=== PATIENT | female | born 1965 | race Caucasian/White ===

== ENCOUNTER → 2017-08-26 | Outpatient (CLI) | payer OTHER ==
[~2017-08-26] MED LIST: CAND16; HYDACE5 PO; HYDMOR2 PO; LISHYD2012 PO; METO25ER PO; NAPR550 PO; ONDA8ODT MM; OXYACE5T PO; OXYACE7.5T PO; PROM25 PO; RXHYDMOR2 PO; RXNAPNA550 PO; RXOXYACE PO; RXPROM25 PO
== END ==
LOC: LAB 12:10
DX: R30.0 Dysuria (principal)
CPT/HCPCS: 87086

== ENCOUNTER → 2017-10-07 | Outpatient (CLI) | payer OTHER ==
[2017-10-07 16:49] LABS: Appearance, Urine Cloudy (Clear); Bilirubin, Urine Neg (Neg); Blood, Urine 1+ (Neg); Color, Urine Yellow (P-Yellow); Glucose Qualitative, Urine Neg (Neg); Ketones, Urine Neg (Neg); Leukocyte Esterase, Urine 2+ (Neg); Nitrite, Urine Pos (Neg); Protein, Urine 1+ (Neg); Urobilinogen, Urine NORM (Normal)
[2017-10-07 16:52] LABS: Triple Phosphate Crystals Mod /hpf
[2017-10-07 16:54] LABS: Bacteria Many /hpf; Squamous Epithelial Cells Rare /hpf (Few)
== END ==
LOC: LAB 14:20
PROVIDERS: Registered Nurse
DX: N39.0 Urinary tract infection, site not specified (principal)
CPT/HCPCS: 81001; 87086

== ENCOUNTER 2017-11-01 16:06 | Emergency (ER) | payer OTHER ==
[~2017-11-01] VITALS: Ht 162.6 cm; Wt 72.6 kg
[2017-11-01 17:00] LABS: BASOPHILS ABSOLUTE AUTO 0.04 K/mm3 (0.00-0.23); BASOPHILS PERCENT AUTO 0 % (0-2); EOSINOPHILS PERCENT AUTO 0 % (0-6); Hematocrit 43.2 % (33.0-51.0); Hemoglobin 15.1 g/dL (11.5-16.0); IMMATURE GRAN ABSOLUTE AUTO 0.04 K/mm3 (0.00-0.10); IMMATURE GRAN PERCENT AUTO 0 % (0-1); LYMPHOCYTES ABSOLUTE AUTO 0.72 K/mm3 (0.84-5.20); LYMPHOCYTES PERCENT AUTO 5 % (21-46); MONOCYTES ABSOLUTE AUTO 1.15 K/mm3 (0.16-1.47); MONOCYTES PERCENT AUTO 9 % (4-13); Mean Corpuscular HGB 31.9 pg (26.0-34.0); Mean Corpuscular Volume 91 fL (80-100); Mean Platelet Volume 10.6 fL (9.1-12.4); NEUTROPHILS ABSOLUTE AUTO 11.49 K/mm3 (1.96-9.15); NEUTROPHILS PERCENT AUTO 85 % (41-73); Platelet Count 171 K/mm3 (150-400); RDW Coefficient Variation 12.6 % (11.7-14.2); Red Blood Cell Count 4.74 M/mm3 (3.80-5.20); White Blood Cell Count 13.44 K/mm3 (4.00-11.30)
[2017-11-01 17:18] LABS: Source, Urine Voided
[2017-11-01 17:28] LABS: Alanine Aminotransfer (ALT/SGP 30 U/L (12-78); Albumin, Blood 3.9 g/dL (3.4-5.0); Albumin/Globulin Ratio 0.8 (0.8-1.8); Alk Phos 132 U/L (50-136); Anion Gap 11 mmol/L (6-16); Aspartate Aminotrans (AST/SGOT 22 U/L (12-37); Bilirubin, Total 1.3 mg/dL (0.1-1.0); Blood Urea Nitrogen 17 mg/dL (8-24); Bun/Creatinine Ratio 21.1 (12.0-20.0); CO2, Blood 25 mmol/L (21-32); Calcium, Blood 9.5 mg/dL (8.5-10.1); Chloride, Blood 98 mmol/L (98-108); Globulin, Blood 4.6 g/dL (2.2-4.0); Glomerular Filtration Rate >60 (60-); Glucose, Blood 133 mg/dL (70-99); Sodium, Blood 134 mmol/L (136-145); Total Protein, Blood 8.5 g/dL (6.4-8.2)
[2017-11-01 17:35] LABS: Bilirubin, Urine Neg (Neg); Blood, Urine 2+ (Neg); Glucose Qualitative, Urine Neg (Neg); Ketones, Urine 2+ (Neg); Leukocyte Esterase, Urine 3+ (Neg); Nitrite, Urine Pos (Neg); Protein, Urine 2+ (Neg); Specific Gravity, Urine 1.015 (1.003-1.022); Urobilinogen, Urine NORM (Normal)
[2017-11-01 17:58] LABS: Appearance, Urine Hazy (Clear); Color, Urine Yellow (P-Yellow)
[2017-11-01 17:59] LABS: Bacteria Many /hpf; Squamous Epithelial Cells Few /hpf (Few); White Blood Cells, Urine 25-50 /hpf (0-5)
== END 2017-11-01 19:18 | disposition short-term general hospital (02) ==
LOC: ER 16:06
PROVIDERS: Physician Assistant
DX: N13.2 Hydronephrosis with renal and ureteral calculous obstruction (principal); I10 Essential (primary) hypertension; F17.210 Nicotine dependence, cigarettes, uncomplicated; Z88.2 Allergy status to sulfonamides
CPT/HCPCS: 36415; 76770; 80053; 81001; 83605; 85025; 87040; 87086; 96365; 96375; 99285; J0692; J1885; J2405; J3010; J7030

== ENCOUNTER 2017-12-08 15:12 | Emergency (ER) | payer OTHER ==
[~2017-12-08] VITALS: Ht 162.6 cm; Wt 74.8 kg
[2017-12-08 15:56] LABS: Hematocrit 38.2 % (33.0-51.0); Hemoglobin 13.2 g/dL (11.5-16.0); Mean Corpuscular HGB 31.3 pg (26.0-34.0); Mean Corpuscular HGB Conc 34.6 g/dL (31.5-36.5); Mean Corpuscular Volume 91 fL (80-100); Mean Platelet Volume 10.8 fL (9.1-12.4); Platelet Count 239 K/mm3 (150-400); RDW Coefficient Variation 12.2 % (11.7-14.2); RDW Standard Deviation 40.7 fL (35.1-46.3); Red Blood Cell Count 4.22 M/mm3 (3.80-5.20)
[2017-12-08 16:22] LABS: Albumin, Blood 3.5 g/dL (3.4-5.0); Albumin/Globulin Ratio 0.9 (0.8-1.8); Bilirubin, Total 1.1 mg/dL (0.1-1.0); Bun/Creatinine Ratio 25.9 (12.0-20.0); Creatinine, Blood 1.08 mg/dL (0.40-1.00); Globulin, Blood 3.8 g/dL (2.2-4.0); Potassium, Blood 2.8 mmol/L (3.5-5.5); Total Protein, Blood 7.3 g/dL (6.4-8.2)
[2017-12-08 16:32] LABS: BAND PERCENT MAN 5 % (0-8); BASOPHILS ABSOLUTE MAN 0.24 K/mm3 (0.00-0.23); BASOPHILS PERCENT MAN 1 % (0-2); EOSINOPHILS PERCENT MAN 0 % (0-6); LYMPHOCYTES ABSOLUTE MAN 0.96 K/mm3 (0.84-5.20); LYMPHOCYTES PERCENT MAN 4 % (21-46); MONOCYTES ABSOLUTE MAN 0.48 K/mm3 (0.16-1.47); MONOCYTES PERCENT MAN 2 % (4-13); NEUTROPHILS ABSOLUTE MAN 22.32 K/mm3 (1.96-9.15); SEG NEUTROPHILS PERCENT MAN 88 % (41-73); TOTAL CELLS COUNTED 100
== END 2017-12-08 18:28 | disposition short-term general hospital (02) ==
LOC: ER 15:12
PROVIDERS: Emergency Medicine
DX: S37.012A Minor contusion of left kidney, initial encounter (principal); E87.6 Hypokalemia; I10 Essential (primary) hypertension; E78.5 Hyperlipidemia, unspecified; K21.9 Gastro-esophageal reflux disease without esophagitis; Z87.442 Personal history of urinary calculi; X58.XXXA Exposure to other specified factors, initial encounter
CPT/HCPCS: 36415; 74176; 80053; 85025; 96361; 96365; 96375; 96376; 99285; J1885; J2001; J2405; J3010; J3480; J7030

== ENCOUNTER → 2019-01-12 | Outpatient (CLI) | payer SELFPAY ==
[2019-01-12 12:56] LABS: Source, Urine Clean Catch
[2019-01-12 16:53] LABS: Appearance, Urine Turbid (Clear); Bilirubin, Urine Neg (Neg); Blood, Urine 2+ (Neg); Color, Urine Yellow (P-Yellow); Glucose Qualitative, Urine Neg (Neg); Ketones, Urine 1+ (Neg); Leukocyte Esterase, Urine 3+ (Neg); Nitrite, Urine Neg (Neg); Protein, Urine 3+ (Neg); Urobilinogen, Urine NORM (Normal)
[2019-01-12 17:53] LABS: Bacteria Many /hpf; Squamous Epithelial Cells Rare /hpf (Few)
== END | disposition home or self-care (01) ==
LOC: LAB 12:00 → LAB SHORT 12:00
PROVIDERS: Nurse Practitioner Family
DX: Z09 Encounter for follow-up examination after completed treatment for conditions other than malignant neoplasm (principal); Z87.440 Personal history of urinary (tract) infections
CPT/HCPCS: 81001; 87077; 87086; 87186

== ENCOUNTER → 2020-05-24 | Outpatient (CLI) | payer SELFPAY | END | disposition home or self-care (01) | LOC: LAB 11:06 → LAB SHORT 11:06 | DX: N30.01 Acute cystitis with hematuria (principal); R30.0 Dysuria | CPT/HCPCS: 87086 ==

== ENCOUNTER 2024-10-05 07:37 | Inpatient (IN) | payer SELFPAY ==
[~2024-10-05] VITALS: Ht 162.6 cm; Wt 72.9 kg
[2024-10-05 08:16] LABS: BASOPHILS ABSOLUTE AUTO 0.06 K/mm3 (0.00-0.23); BASOPHILS PERCENT AUTO 1 % (0-2); EOSINOPHILS ABSOLUTE AUTO 0.18 K/mm3 (0.00-0.68); EOSINOPHILS PERCENT AUTO 1 % (0-6); Hematocrit 44.4 % (33.0-51.0); IMMATURE GRAN ABSOLUTE AUTO 0.06 K/mm3 (0.00-0.10); IMMATURE GRAN PERCENT AUTO 1 % (0-1); LYMPHOCYTES PERCENT AUTO 8 % (21-46); MONOCYTES ABSOLUTE AUTO 0.47 K/mm3 (0.16-1.47); MONOCYTES PERCENT AUTO 4 % (4-13); Mean Corpuscular HGB 33.6 pg (26.0-34.0); Mean Corpuscular Volume 93 fL (80-100); Mean Platelet Volume 11.5 fL (9.1-12.4); NEUTROPHILS ABSOLUTE AUTO 11.14 K/mm3 (1.96-9.15); NEUTROPHILS PERCENT AUTO 86 % (41-73); Platelet Count 183 K/mm3 (150-400); RDW Coefficient Variation 12.8 % (11.7-14.2); Red Blood Cell Count 4.76 M/mm3 (3.80-5.20); White Blood Cell Count 12.91 K/mm3 (4.00-11.30)
[2024-10-05 08:34] LABS: Albumin, Blood 3.7 g/dL (3.4-5.0); Albumin/Globulin Ratio 0.8 (0.8-1.8); Bilirubin, Total 0.9 mg/dL (0.1-1.0); Bun/Creatinine Ratio 19.3 (12.0-20.0); Calcium, Blood 8.5 mg/dL (8.5-10.1); Creatinine, Blood 1.14 mg/dL (0.40-1.00); Globulin, Blood 4.8 g/dL (2.2-4.0); Magnesium, Blood 1.7 mg/dL (1.6-2.4); Total Protein, Blood 8.5 g/dL (6.4-8.2)
[2024-10-05] MEDS ORDERED: HydrALAZINE HCl 20 MG / ML 1ML Vial IV ONE (08:40)
[2024-10-05 09:00] LABS: CORONAVIRUS COVID-19 AG Negative (NEGATIVE); INFLUENZA A AG Negative (NEGATIVE); INFLUENZA B AG Negative (NEGATIVE)
[2024-10-05] MEDS ORDERED: Aspirin 325 MG Tab PO ONE (09:25)
[2024-10-05] MEDS ORDERED: Furosemide 10 MG / ML 2ML Vial IV ONE (09:35)
[2024-10-05] MEDS ORDERED: Magnesium Sulf 2 GM/Water 50ML 50 ML IV ONE (10:00)
[2024-10-05] MEDS ORDERED: Potassium Chloride 40 MEQ in NS 250 ML IV ONE (10:00)
[2024-10-05] MEDS ORDERED: HydrALAZINE HCl 20 MG / ML 1ML Vial IV PRN ×2 (10:55→14:55)
[2024-10-05] MEDS ORDERED: NIFEdipine 30 MG TabCR PO SCH (11:00)
[2024-10-05] MEDS ORDERED: FLU VACC TS2024-25(6MOS UP)/PF 45 MCG/0.5 ML SYRINGE IM SCH (11:00)
[2024-10-05] MEDS ORDERED: Polyethylene Glycol 3350 17 gm PO PRN (11:00)
[2024-10-05] MEDS ORDERED: Lisinopril 10 MG Tab PO SCH (11:00)
[2024-10-05] MEDS ORDERED: Acetaminophen 500 MG Tab PO PRN (11:00)
[2024-10-05 15:59] VITALS: BP 166/92
[2024-10-05] MEDS ORDERED: Thiamine HCl 100 MG Tab PO SCH (17:15)
--- NOTE | 2024-10-05 17:15 | NUR ---
ADMIT NOTE Received report form ED RN. Pt to room, up ind transfered to bed. Pt oriented to room and call light. Educated on fall risk. Pt reports increased sob today, felt off this morning before walking to work and sob got progressivly worse. Pt alert, oriented x4; calm and cooperative with care. Pt does report "drinking too much", when asked for additional information, pt states she drinks 3-4 shots of whiskey on day that she works and more on her off days, pt denies having withdrawal s/sx previously, notified, new order for CIWA monitoring and thiamine po. Pt sob with exertion, spo2 >90% on ra, tachypnic at times, ls clear. Tele sinus 80-90's, bp elevated 160 SBP. Abd soft, nontender, +bt. Noted red/dark rash to lower abd, states it has been there for awhile, MD notified. No edema noted. Pt report a history of urinary retention. Potassium recheck at 1540 drawn prior to completion of potassium replacement, notified, new orders to recheck later this evening. Crit trop 293, notified Dr Reveles, new orders for redraw later this evening. Will continue to monitor.
[2024-10-05 17:44] VITALS: BP 159/83
[2024-10-05 20:00] VITALS: BP 169/102
[2024-10-05 22:00] VITALS: BP 158/98
[2024-10-05] MEDS ORDERED: Potassium Chloride 10 Meq Tablet SA PO ONE (23:45)
[2024-10-05] MEDS ORDERED: Potassium Chl 20MEQ/Water100ML 100 ML IV SCH (23:45)
[2024-10-06] VITALS: BP 164/104
[2024-10-06] MEDS ORDERED: NS 250 ML IV PRN (00:40)
[2024-10-06] MEDS ORDERED: Potassium Chloride 40 MEQ in NS 250 ML IV ONE (00:45)
[2024-10-06 02:00] VITALS: BP 154/97
[2024-10-06 04:00] VITALS: BP 147/94
[2024-10-06 04:58] LABS: Hematocrit 39.4 % (33.0-51.0); Hemoglobin 14.2 g/dL (11.5-16.0); Mean Corpuscular HGB 33.8 pg (26.0-34.0); Mean Corpuscular Volume 94 fL (80-100); Platelet Count 181 K/mm3 (150-400); RDW Coefficient Variation 13.1 % (11.7-14.2); RDW Standard Deviation 44.7 fL (35.1-46.3); White Blood Cell Count 8.63 K/mm3 (4.00-11.30)
[2024-10-06 05:47] LABS: Albumin, Blood 3.1 g/dL (3.4-5.0); Anion Gap 9 mmol/L (3-11); Blood Urea Nitrogen 20 mg/dL (8-24); Bun/Creatinine Ratio 16.8 (12.0-20.0); CO2, Blood 27 mmol/L (21-32); Calcium, Blood 8.7 mg/dL (8.5-10.1); Chloride, Blood 105 mmol/L (98-108); Creatinine, Blood 1.19 mg/dL (0.40-1.00); Glomerular Filtration Rate 52 (60-); Glucose, Blood 136 mg/dL (70-99); Magnesium, Blood 2.2 mg/dL (1.6-2.4); Phosphorus, Blood 2.7 mg/dL (2.5-4.9); Potassium, Blood 3.7 mmol/L (3.5-5.5); Sodium, Blood 137 mmol/L (136-145)
[2024-10-06 07:13] LABS: Albumin, Blood 3.2 g/dL (3.4-5.0); Albumin/Globulin Ratio 0.8 (0.8-1.8); Bilirubin, Total 1.1 mg/dL (0.1-1.0); Bun/Creatinine Ratio 16.4 (12.0-20.0); Calcium, Blood 8.6 mg/dL (8.5-10.1); Creatinine, Blood 1.1 mg/dL (0.40-1.00); Globulin, Blood 3.9 g/dL (2.2-4.0); Potassium, Blood 3.4 mmol/L (3.5-5.5); Total Protein, Blood 7.1 g/dL (6.4-8.2)
[2024-10-06 07:25] VITALS: BP 156/95
[2024-10-06] MEDS ORDERED: Potassium Chloride 20 MEQ TabCR PO ONE (08:40)
[2024-10-06] MEDS ORDERED: Furosemide 20 MG Tab PO SCH (09:00)
[2024-10-06] MEDS ORDERED: Enoxaparin 40 MG/0.4 ML SYR SC SCH (09:00)
--- NOTE | 2024-10-06 11:01 | NUR ---
THIS RN TOOK OVER CARE FOR THE PT AT ABOUT 1015. THE PT IS A&OX4, MAKING HER NEEDS KNOW, CALM IN THE ROOM, AND WE ARE WAITING FOR DISCHARGE ORDERS FROM THE DR. VS STABLE. PT ON RA AND DENIES ANY SOB. ON TELE SHE IS SR 80'S W/ PROLONGED QTC .54. PROVIDER AWARE. SHE DENIES ANY ANGINA OR CHEST PRESSURE. VS STABLE. SEE NOTES FOR ANY UPDATES.
[2024-10-06 11:28] VITALS: BP 158/97
[2024-10-06] MEDS ORDERED: FURO20 PO (13:10)
[2024-10-06] MEDS ORDERED: Prinivil10 MG PO (13:11)
[2024-10-06] MEDS ORDERED: AMLO5 PO (13:11)
--- NOTE | 2024-10-06 14:10 | NUR ---
D/C SUMMARY THE PT IS A&OX4, MAKES HER NEEDS KNOWN, WAS IND IN THE ROOM, AND VS STABLE. THE PT WAS WITHOUT ANY ANGINA OR CHEST PRESSURE. THE PT'S MEDICATIONS WERE FAXED TO [facility] PER REQUEST AND ALLL BELONGINGS WERE SENT WITH PT. THIS RN WENT INTO DEPTH CONVERSATION ABOOUT MEDICATIONS AND THE IMPORTANCE OF CHECKING HER BLOOD PRESSURE. PT VERABLIZED UNDERSTANDING AND STATED SHE WAS GOING TO GET A BLOOD PRESSURE CUFF FROM HER DAD. ALL QUESTIONS ANSWERED AT DISCHARGE. IV PULLED BY CNAS. NO FURTHER NOTES FROM THIS RN.
== END 2024-10-06 14:07 | disposition home or self-care (01) | DRG 291 ==
LOC: ER 07:37 → ERHOLD 10:52 → PCU 15:58
PROVIDERS: Family Medicine; Student in an Organized Health Care Education/Training Program; ADMIT Internal Medicine
DX: I11.0 Hypertensive heart disease with heart failure (principal); I50.31 Acute diastolic (congestive) heart failure; N17.9 Acute kidney failure, unspecified; I16.0 Hypertensive urgency; K21.9 Gastro-esophageal reflux disease without esophagitis; E78.5 Hyperlipidemia, unspecified; Z98.51 Tubal ligation status; Z88.2 Allergy status to sulfonamides; E87.6 Hypokalemia
CPT/HCPCS: 36415; 71045; 80053; 80069; 83735; 83880; 84132; 84145; 84484; 85025; 85027; 87428-QW; 93306; 94760; 96365; 96375; 99285-25; A9270; J0360; J1650; J1940; J3475; J3480; J7050

== ENCOUNTER → 2025-04-13 | Outpatient (CLI) | payer OTHER ==
[~2025-04-13] MED LIST changes: +AMLO5 PO; +FURO20 PO; +Prinivil10 MG PO
[2025-04-13 12:24] LABS: Microalbumin, Urine Quant. 107.0 mg/L (0.000-20.000); Protein, Urine Quantitative 49.4 mg/dL (0.0-11.9)
== END ==
LOC: LAB 09:27 → LAB SHORT 09:27
PROVIDERS: Internal Medicine Nephrology
DX: N18.30 Chronic kidney disease, stage 3 unspecified (principal); D63.1 Anemia in chronic kidney disease; R76.9 Abnormal immunological finding in serum, unspecified; R94.5 Abnormal results of liver function studies; R94.6 Abnormal results of thyroid function studies
CPT/HCPCS: 81050; 82043; 82570; 84156